=== PATIENT | female | born 1975 | race Caucasian/White ===

== ENCOUNTER 2017-07-29 17:51 | Emergency (ER) | payer OTHER ==
[2017-07-29 17:57] VITALS: BP 187/113; PULSE 99; TEMP 98.1; BMI 43.8
--- NOTE | 2017-07-29 19:44 | PDOC ---
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 States she was moving something and a shelf fell on her head. Denies any LOC, denies any blood thinners, vomiting, motor or sensory deficits, vomiting. Pt reports feeling much better with a slight headache. Past History - Past Medical History Allergies/Adverse Reactions: Allergies Allergy/AdvReac Type Severity Reaction Status Date / Time peanut Allergy Verified 07/29/17 17:54 COPD: No - Suicide/Smoking/Psychosocial Hx Smoking History: Never smoked Have you smoked in the past 12 months: No Information on smoking cessation initiated: No Hx Alcohol Use: No Drug/Substance Use Hx: No Substance Use Type: None Review of Systems - Review of Systems Constitutional: No: Chills, Fever, Night Sweats HEENTM: No: Blurred Vision, Nose Congestion, Throat Pain Respiratory: No: Cough, Shortness of Breath, Wheezing Cardiac (ROS): No: Chest Pain, Lightheadedness, Palpitations, Syncope, Chest Tightness ABD/GI: No: Constipated, Diarrhea, Nausea, Vomiting Musculoskeletal: No: Back Pain, Neck Pain Integumentary: No: Lesions, Lumps Neurological: No: Numbness, Paresthesia, Tingling, Weakness, Dizziness Hematologic/Lymphatic: No: Easy Bleeding, Easy Bruising *Physical Exam - Vital Signs Last Vital Signs Temp Pulse Resp BP Pulse Ox 98.1 F 99 H 20 187/113 99 07/29/17 17:54 07/29/17 17:54 07/29/17 17:54 07/29/17 17:54 07/29/17 17:54 - Physical Exam Comments: 07/29/17 19:59 GEN: NAD, awake, alert, oriented x3 HEENT: Slight R superior abrasion of scalp, no bleeding or hematoma, skull structurally stable, no racoon eyes or mello signs noted, moist mucosa LUNGS: CTA b/l CARDIAC: RRR no murmurs ABD: Soft, NT/ND, no guarding EXT: No edema, 2+ DP pulses Medical Decision Making - Medical Decision Making 07/29/17 19:49 Abrasion of head. Per [place] CT score does not need a CT scan. Motrin 400mg PO once. Can be discharged after with disposition to home. *DC/Admit/Observation/Transfer Diagnosis at time of Disposition: Head injury Qualifiers: Encounter type: initial encounter Qualified Code(s): S09.90XA - Unspecified injury of head, initial encounter - Discharge Dispostion Disposition: HOME Condition at time of disposition: Good Admit: No - Referrals Referrals: Marlene Marion [Primary Care Provider] - - Patient Instructions Additional Instructions: You were seen here for a head injury from your incident with a shelf. There is only a small scrape on your scalp A CT scan is not needed due to resolution of symptoms. IF you feel disoriented, increasing sleepiness, difficulties with moving or sensation changes please come back to the ER for further evaluation. Otherwise take either OTC motrin or tylenol for pain. Have a great day! - Post Discharge Activity
[2017-07-29] MEDS ORDERED: IBUPROFEN 400 MG TABLET (FP) PO ONE ×2 (19:47→19:51)
--- NOTE | 2017-07-29 19:49 | PDOC ---
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 No: Apparent Distress, Intoxicated HEENT: positive: EOMI, OSMEL, Normal ENT Inspection, Normal Voice, TMs Normal, Pharynx Normal. negative: Pale Conjunctivae, Photophobia, Scleral Icterus (R), Scleral Icterus (L) Neck: positive: Trachea midline, Normal Thyroid, Supple. negative: Tender, Rigid, Carotid bruit, Stridor, Lymphadenopathy (R), Lymphadenopathy (L), Thyromegaly Respiratory/Chest: positive: Lungs Clear, Normal Breath Sounds. negative: Chest Tender, Respiratory Distress, Accessory Muscle Use, Labored Respiration, RES, Crackles, Rales, Rhonchi, Stridor, Wheezing, Dullness Cardiovascular: positive: Regular Rhythm, Regular Rate, S1, S2. negative: Edema , JVD, Murmur, Bradycardia, Tachycardia Vascular Pulses: Dorsalis-Pedis (R): 2+, Doralis-Pedis (L): 2+ Gastrointestinal/Abdominal: positive: Normal Bowel Sounds, Flat, Soft. negative : Tender, Organomegaly, Pulsatile Mass, Increased Bowel Sounds, Decreased BS, Distended, Guarding, Rebound, Hernia, Hepatomegaly, Spleenomegaly Lymphatic: negative: Adenopathy, Tenderness Musculoskeletal: positive: Normal Inspection. negative: CVA Tenderness, Decreased Range of Motion Extremity: positive: Normal Capillary Refill, Normal Inspection, Normal Range of Motion, Pelvis Stable. negative: Tender, Pedal Edema, Swelling, Erythema Integumentary: positive: Normal Color, Dry, Warm. 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 negative: EOM Palsy, Facial Droop, Sensory Deficit - Medical Decision Making 07/29/17 19:49 Pt treated and released
== END 2017-07-29 20:31 | disposition home or self-care (01) ==
LOC: JER 17:51
DX: S09.8XXA Other specified injuries of head, initial encounter (principal); W22.8XXA Striking against or struck by other objects, initial encounter; Y93.89 Activity, other specified; Y92.238 Other place in hospital as the place of occurrence of the external cause; Y99.0 Civilian activity done for income or pay
CPT/HCPCS: 99282-25

== ENCOUNTER 2017-09-10 09:09 | Emergency (ER) | payer OTHER ==
[2017-09-10 09:13] VITALS: BP 124/93; PULSE 81; TEMP 98.3; BMI 42.5
--- NOTE | 2017-09-10 09:44 | PDOC ---
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 HAND INJURY Time Seen by Provider: 09/10/17 09:41 Past History - Past Medical History Allergies/Adverse Reactions: Allergies Allergy/AdvReac Type Severity Reaction Status Date / Time peanut Allergy Verified 09/10/17 09:10 STONE FRUITS Allergy Uncoded 09/10/17 09:10 Home Medications: Ambulatory Orders NK [No Known Home Medication] 09/10/17 COPD: No - Suicide/Smoking/Psychosocial Hx Smoking History: Never smoked Have you smoked in the past 12 months: No Information on smoking cessation initiated: No Hx Alcohol Use: No Drug/Substance Use Hx: No Substance Use Type: None *Physical Exam - Vital Signs Last Vital Signs Temp Pulse Resp BP Pulse Ox 98.3 F 81 18 124/93 100 09/10/17 09:11 09/10/17 09:11 09/10/17 09:11 09/10/17 09:11 09/10/17 09:11 ED Treatment Course - RADIOLOGY Radiology Studies Ordered: Category Date Time Status WRIST W/HAND-LEFT* [RAD] Stat Radiology 09/10/17 09:42 Ordered *DC/Admit/Observation/Transfer Diagnosis at time of Disposition: Left wrist pain - Discharge Dispostion Disposition: HOME Condition at time of disposition: Stable Decision to Admit order: No - Referrals Referrals: Marlene Marion [Primary Care Provider] - - Patient Instructions Printed Discharge Instructions: DI for Wrist Strain Additional Instructions: Your x-ray is negative for fracture Please wear the splint for comfort. You may take 600mg of ibuprofen every 8 hours as needed for pain Ice the hand and keep it elevated Follow up with your orthopedic doctor next week. Return if you have an new or worsening symptoms - Post Discharge Activity Forms/Work/School Notes: Back to Work
== END 2017-09-10 13:20 | disposition home or self-care (01) ==
LOC: JERFT 09:09 → JER 09:09 → JERFT 13:20
PROC: 2W3DX1Z Immobilization of Left Lower Arm using Splint (ICD-10-PCS; principal; 2017-09-10)
DX: S66.812A Strain of other specified muscles, fascia and tendons at wrist and hand level, left hand, initial encounter (principal); W19.XXXA Unspecified fall, initial encounter; Y93.89 Activity, other specified; Y92.89 Other specified places as the place of occurrence of the external cause; Y99.8 Other external cause status
CPT/HCPCS: 73110-TC-LR-FY; 73130-TC-LR-FY; 99281-25

== ENCOUNTER 2017-11-09 11:44 | Emergency (ER) | payer OTHER ==
[2017-11-09 11:51] VITALS: BP 134/89; PULSE 90; TEMP 98.7; BMI 41.5
--- NOTE | 2017-11-09 12:06 | PDOC ---
Attending Attestation - Resident Resident Name: Alana Bella - HPI HPI: 11/09/17 13:00 11/09/17 13:04 - Medical Decision Making 11/09/17 13:04 Pt presents to the ED complaining of atraumatic right sided back pain that has been persistent for two weeks but became acutely worse on thursday. No urinary complaints or fever, no point tenderness over spine. Pain is most likely musculoskeletal. Will treat with IM toradol and rx for NSAIDs. Patient instructed to return to the ED for worsening symptoms. <Claudine Canales - Last Filed: 11/09/17 13:00> - HPI HPI: 11/09/17 13:41 The patient is a 42 year old female, with no significant past medical history, who presents to the emergency department with, 2 weeks of worsening back pain. 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 She describes her pain as cartilage rubbing against each other, localized to her mid lower back, and ranking a 8/10. Her pain is worsened when on her sides and with deep inspiration. Her pain is alleviated when moving forward. She has used Naproxen, Tylenol, and Advil, without relief. She has used Bengay, with minimal relief. She denies recent fevers, chills, headache or dizziness. She denies recent nausea, vomit, diarrhea or constipation. She denies recent dysuria, frequency, urgency or hematuria. She denies recent chest pain or shortness of breath. Allergies: Peanuts. Stone fruits. Social history: Former smoker. Denies recreational drug use. - Physicial Exam PE: 11/09/17 14:08 GENERAL: Awake, alert, and fully oriented, in no acute distress HEAD: No signs of trauma EYES: PERRLA, EOMI, sclera anicteric, conjunctiva clear ENT: Auricles normal inspection, hearing grossly normal, nares patent, oropharynx clear without exudates. Moist mucosa NECK: Normal ROM, supple, no lymphadenopathy, JVD, or masses LUNGS: Breath sounds equal, clear to auscultation bilaterally. No wheezes, and no crackles HEART: Regular rate and rhythm, normal S1 and S2, no murmurs, rubs or gallops ABDOMEN: Soft, nontender, normoactive bowel sounds. No guarding, no rebound. No masses +BACK: Right sided paraspinal tenderness. EXTREMITIES: Normal range of motion, no edema. No clubbing or cyanosis. No cords, erythema, or tenderness NEUROLOGICAL: Cranial nerves II through XII grossly intact. Normal speech, normal gait SKIN: Warm, Dry, normal turgor, no rashes or lesions noted. <Chauncey Escobar - Last Filed: 11/09/17 14:08> Attestations - Attestations 11/09/17 13:42 Documentation prepared by Chauncey Escobar, acting as medical information officer for Claudine Canales MD. <Chauncey Escobar - Last Filed: 11/09/17 14:08>
[2017-11-09] MEDS ORDERED: KETOROLAC TROMETHAMINE 60 MG/2 ML VIAL IM ONE (12:22)
--- NOTE | 2017-11-09 12:30 | PDOC ---
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 Since then the back pain has not remitted despite the use of tylenol. She reports difficulty sleeping due to the pain but denies fever, nausea, urinary retention, blood in urine, saddle anesthesia, incontinence, difficulty walking. She has no other complaints at bedside. PMHX: none Meds: none Allergies: peanuts, stone fruits Tob: none Etoh: none Rec drugs: none Past History - Past Medical History Allergies/Adverse Reactions: Allergies Allergy/AdvReac Type Severity Reaction Status Date / Time peanut Allergy Verified 09/10/17 09:10 STONE FRUITS Allergy Uncoded 09/10/17 09:10 Home Medications: Ambulatory Orders Methocarbamol 500 mg PO BID PRN #20 tablet 11/09/17 Methocarbamol [Robaxin] 100 mg IJ TID #7 ml 11/09/17 Naproxen 500 mg PO BID PRN #30 tablet. 11/09/17 Naproxen [Naprosyn] 500 mg PO PRN #14 tablet 11/09/17 Methocarbamol [Robaxin -] 500 mg PO BID PRN #14 tablet 11/10/17 Methocarbamol [Robaxin -] 500 mg PO BID PRN #20 tablet MDD 2 tabs 11/10/17 Naproxen [Naprosyn] 500 mg PO BID PRN #14 tablet 11/10/17 Cancer: Yes Cardiac Disorders: Yes ([place]) COPD: No Diabetes: Yes - Suicide/Smoking/Psychosocial Hx Smoking History: Former smoker Have you smoked in the past 12 months: No Information on smoking cessation initiated: No Hx Alcohol Use: No Drug/Substance Use Hx: No Substance Use Type: None Review of Systems - Review of Systems Able to Perform ROS?: Yes Is the patient limited Irish proficient: No Constitutional: No: Chills, Fever HEENTM: No: Blurred Vision, Tinnitus Respiratory: No: Cough, Shortness of Breath Cardiac (ROS): No: Chest Pain ABD/GI: No: Constipated, Diarrhea, Nausea, Vomiting : No: Burning, Dysuria, Hematuria, Incontinence Musculoskeletal: Yes: Back Pain, Muscle Pain Neurological: No: Headache, Numbness, Paresthesia, Tingling *Physical Exam - Vital Signs Last Vital Signs Temp Pulse Resp BP Pulse Ox 98.7 F 90 18 134/89 99 11/09/17 11:45 11/09/17 11:45 11/09/17 11:45 11/09/17 11:45 11/09/17 11:45 - Physical Exam Comments: GENERAL: Awake, alert, and fully oriented, in no acute distress HEAD: No signs of trauma, normocephalic, atraumatic EYES: EOMI, sclera anicteric, conjunctiva clear ENT: oropharynx clear without exudates. Moist mucosa NECK: Normal ROM, supple, no lymphadenopathy masses, No C-spine tenderness LUNGS: No distress, speaks full sentences, clear to auscultation bilaterally HEART: Regular rate and rhythm, normal S1 and S2, no murmurs, rubs or gallops, peripheral pulses normal and equal bilaterally. ABDOMEN: Soft, nontender, normoactive bowel sounds. No guarding, no rebound. No masses BACK: No spinal tenderness, + R sided paraspinal tenderness to palpation, No CVA tenderness EXTREMITIES : Normal inspection, Normal range of motion, no edema. No clubbing or cyanosis. NEUROLOGICAL: Normal speech, normal gait, no focal sensorimotor deficits SKIN: Warm, Dry, normal turgor, no rashes or lesions noted Medical Decision Making - Medical Decision Making 42 year old who presents with 4 days of R sided mid back pain without history of trauma, neurological changes or fevers. Patient's symptoms and history are consistent with muscle strain. Less likely etiologies compression fracture vs rib fracture vs pyelonephritis. These possibilities are less likely as the patient did not have a history of trauma, did not have a history that would decrease bone density and did not have any urinaru changes that would be concerning for urinary infection. On reassessment patient is stable. Patient ready for discharge and given follow up instrcutions with strict return precautions. *DC/Admit/Observation/Transfer Diagnosis at time of Disposition: Muscle strain - Discharge Dispostion Disposition: HOME Condition at time of disposition: Stable Decision to Admit order: No - Prescriptions Prescriptions: Methocarbamol [Robaxin -] 500 mg PO BID PRN #14 tablet PRN Reason: Back Pain Methocarbamol [Robaxin -] 500 mg PO BID PRN #20 tablet MDD 2 tabs PRN Reason: Pain Methocarbamol 500 mg PO BID PRN #20 tablet PRN Reason: Pain Methocarbamol [Robaxin] 100 mg IJ TID #7 ml Naproxen [Naprosyn] 500 mg PO BID PRN #14 tablet PRN Reason: Back Pain Naproxen 500 mg PO BID PRN #30 tablet. PRN Reason: Pain Naproxen [Naprosyn] 500 mg PO PRN #14 tablet - Referrals Referrals: Marlene Marion [Primary Care Provider] - - Patient Instructions Printed Discharge Instructions: DI for Muscle Strain Additional Instructions: You were seen in the ED for complaint of back pain/muscle strain. In the ED you were treated symptomatically and given pain medications. You are advised to rest and alternate between heat and ice for the back. Return to the ED immediately if you feel significant weakness, worsening of back pain, difficulty urinating, blood in the urine or stool, fevers, nausea or vomiting. - Post Discharge Activity Forms/Work/School Notes: Back to Work
[2017-11-09] MEDS ORDERED: KETOROLAC TROMETHAMINE 60 MG/2 ML VIAL ONE (12:32)
== END 2017-11-09 13:05 | disposition home or self-care (01) ==
LOC: JER 11:44
DX: S39.012A Strain of muscle, fascia and tendon of lower back, initial encounter (principal); S29.012A Strain of muscle and tendon of back wall of thorax, initial encounter; Y93.F9 Activity, other caregiving; Y92.238 Other place in hospital as the place of occurrence of the external cause; Y99.0 Civilian activity done for income or pay; X50.9XXA Other and unspecified overexertion or strenuous movements or postures, initial encounter; I25.2 Old myocardial infarction; E11.9 Type 2 diabetes mellitus without complications
CPT/HCPCS: 99282-25

== ENCOUNTER 2018-01-26 08:16 | Emergency (ER) | payer OTHER ==
[2018-01-26 08:28] VITALS: BP 118/85; PULSE 92; TEMP 99.1; BMI 42.0
[2018-01-26] MEDS ORDERED: PENICILLIN G BENZATHINE 1,200,000 UNIT/2 ML PFS IM ONE (08:44)
[2018-01-26] MEDS ORDERED: IBUPROFEN 400 MG TABLET (FP) PO ONE ×2 (08:44→08:52)
[2018-01-26] MEDS ORDERED: PENICILLIN G BENZATHINE 2,400,000 UNIT/4 ML PFS ONE (08:52)
--- NOTE | 2018-01-26 08:53 | PDOC ---
History of Present Illness - General Chief Complaint: Sore Throat Stated Complaint: SORE THROAT Time Seen by Provider: 01/26/18 08:33 History Source: Patient Exam Limitations: No Limitations - History of Present Illness Initial Comments: 01/26/18 08:50 c/o sore throat for 3 days history of strep Past History - Past Medical History Allergies/Adverse Reactions: Allergies Allergy/AdvReac Type Severity Reaction Status Date / Time peanut Allergy Verified 01/26/18 08:24 STONE FRUITS Allergy Uncoded 01/26/18 08:24 Home Medications: Ambulatory Orders Methylprednisolone [Medrol Dose Mike] 4 mg PO ASDIR #21 tablet 01/27/18 Cancer: No Cardiac Disorders: No COPD: No Diabetes: No - Suicide/Smoking/Psychosocial Hx Smoking History: Never smoked Have you smoked in the past 12 months: No Hx Alcohol Use: No Drug/Substance Use Hx: No Substance Use Type: None Review of Systems - Review of Systems Able to Perform ROS?: Yes Is the patient limited Lebanese proficient: No Constitutional: No: Symptoms Reported HEENTM: Yes: Symptoms Reported Respiratory: No: Symptoms reported Cardiac (ROS): No: Symptoms Reported ABD/GI: No: Symptoms Reported *Physical Exam - Vital Signs Last Vital Signs Temp Pulse Resp BP Pulse Ox 99.1 F 92 H 20 118/85 100 01/26/18 08:25 01/26/18 08:25 01/26/18 08:25 01/26/18 08:25 01/26/18 08:25 - Physical Exam General Appearance: Yes: Nourished, Appropriately Dressed HEENT: positive: EOMI, OSMEL, TMs Normal, Tonsillar Exudate, Tonsillar Erythema Neck: positive: Supple, Lymphadenopathy (R), Lymphadenopathy (L). negative: Tender, Other Respiratory/Chest: positive: Lungs Clear, Normal Breath Sounds. negative: Chest Tender Cardiovascular: positive: Regular Rhythm, Regular Rate Gastrointestinal/Abdominal: positive: Normal Bowel Sounds, Soft. negative: Tender Musculoskeletal: positive: Normal Inspection Extremity: positive: Normal Capillary Refill, Normal Inspection, Normal Range of Motion Integumentary: positive: Normal Color, Dry, Warm Neurologic: positive: Fully Oriented, Alert, Normal Mood/Affect, Normal Response , Motor Strength 5/5 Medical Decision Making - Medical Decision Making 01/26/18 08:51 cc: sore throat , low grade fever pos lymphadenopathy exudate left tonsil uvula midline neg drooling will treat for strep, pt prefers bicillin injection will send culture to confirm *DC/Admit/Observation/Transfer Diagnosis at time of Disposition: Pharyngitis Qualifiers: Pharyngitis/tonsillitis etiology: unspecified etiology Qualified Code(s): J02.9 - Acute pharyngitis, unspecified - Discharge Dispostion Disposition: HOME Condition at time of disposition: Good - Referrals Referrals: Marlene Marion [Primary Care Provider] - - Patient Instructions Additional Instructions: take ibuprofen 600-800mg every 8hrs for pain gargle with warm salt water every 4hrs and after meals follow with your doctor or ENT if symptoms worsen or persist - Post Discharge Activity Forms/Work/School Notes: Back to Work
== END 2018-01-26 09:21 | disposition home or self-care (01) ==
LOC: JERFT 08:16
DX: J02.0 Streptococcal pharyngitis (principal); B95.5 Unspecified streptococcus as the cause of diseases classified elsewhere
CPT/HCPCS: 87070; 87430; 99281-25

== ENCOUNTER 2018-01-27 08:21 | Emergency (ER) | payer OTHER ==
--- NOTE | 2018-01-27 08:42 | PDOC ---
History of Present Illness - General Chief Complaint: Sore Throat Stated Complaint: SORE THROAT Time Seen by Provider: 01/27/18 08:37 History Source: Patient Exam Limitations: No Limitations - History of Present Illness Initial Comments: 01/27/18 08:45 Pt is a 42 y/o F who presents to the ED for sore throat. States she has 3 days of pain and usually gets strep throat. Pt evaluated in the ED yesterday and had a negative rapid strep. Still pending the culture. Was treated with bicillin yesterday. States she usually gets steroids for the pain. Admits to worsening pain and difficulty swallowing. Denies fevers, chills, n/v, difficulty breathing. Past History - Travel Traveled outside of the country in the last 30 days: No Close contact w/someone who was outside of country & ill: No - Past Medical History Allergies/Adverse Reactions: Allergies Allergy/AdvReac Type Severity Reaction Status Date / Time peanut Allergy Verified 01/26/18 08:24 STONE FRUITS Allergy Uncoded 01/26/18 08:24 Home Medications: Ambulatory Orders Methylprednisolone [Medrol Dose Mike] 4 mg PO ASDIR #21 tablet 01/27/18 Cancer: No Cardiac Disorders: No COPD: No Diabetes: No - Suicide/Smoking/Psychosocial Hx Smoking History: Never smoked Have you smoked in the past 12 months: No Hx Alcohol Use: No Drug/Substance Use Hx: No Substance Use Type: None Review of Systems - Review of Systems Able to Perform ROS?: Yes Comments:: 01/27/18 08:54 CONSTITUTIONAL: Absent: fever, chills, diaphoresis, generalized weakness, malaise, loss of appetite HEENT: Present: sore throat, difficulty swallowing Absent: rhinorrhea, nasal congestion , throat swelling, mouth swelling, ear pain, eye pain, visual Changes CARDIOVASCULAR: Absent: chest pain, loss of consciousness, palpitations, irregular heart rate, peripheral edema RESPIRATORY: Absent: cough, shortness of breath, dyspnea with exertion, orthopnea, wheezing, stridor, hemoptysis GASTROINTESTINAL: Absent: abdominal pain, abdominal distension, nausea, vomiting, diarrhea, constipation, melena, hematochezia GENITOURINARY: Absent: dysuria, frequency, urgency, hesitancy, hematuria, flank pain, genital pain MUSCULOSKELETAL: Absent: myalgia, arthralgia, joint swelling SKIN: Absent: rash, itching, pallor HEMATOLOGIC/IMMUNOLOGIC: Absent: easy bleeding, easy bruising, lymphadenopathy, frequent infections ENDOCRINE: Absent: unexplained weight gain, unexplained weight loss, heat intolerance, cold intolerance NEUROLOGIC: Absent: headache, focal weakness or paresthesias, dizziness, unsteady gait, seizure, mental status changes, bladder or bowel incontinence PSYCHIATRIC: Absent: anxiety, depression, suicidal or homicidal ideation, hallucinations. Is the patient limited [place] proficient: No *Physical Exam - Physical Exam Comments: 01/27/18 08:58 GENERAL: Well developed, well nourished. Awake and alert. No acute distress. HEENT: Normocephalic, atraumatic. PERRLA, EOMI. No conjunctival pallor. Sclera are non- icteric. Moist mucous membranes. Oropharynx with erythema, exudate to the tonsils. 2+ tonsils with no uvular deviation. NECK: Supple. Full ROM. No JVD. Carotid pulses 2+ and symmetric, without bruits. No thyromegaly. (+) cervical LAD. MUSCULOSKELETAL Normal range of motion at all joints. No bony deformities or tenderness. No CVA tenderness. EXTREMITIES: No cyanosis. No clubbing. No edema. No calf tenderness. SKIN: Warm and dry. Normal capillary refill. No rashes. No jaundice. NEUROLOGICAL: Alert, awake, appropriate. Cranial nerves 2-12 intact. No deficits to light touch and temperature in face, upper extremities and lower extremities. No motor deficits in the in face, upper extremities and lower extremities. Normoreflexic in the upper and lower extremities. Normal speech. Toes are down- going bilaterally. Gait is normal without ataxia. PSYCHIATRIC: Cooperative. Good eye contact. Appropriate mood and affect. Medical Decision Making - Medical Decision Making 01/27/18 09:05 Pt is a 42 y/o F who presents with 3 days of sore throat -Pt treated yesterday with bicillin -No uvular deviation, but tonsils erythematous with exudate and 2+ in size. -Will give pain control including steroids and toradol -Culture still pending -D/c home with medrol dose pack and ENT follow up -I discussed the physical exam findings, ancillary test results and final diagnoses with the patient. I answered all of the patient's questions. The patient was satisfied with the care received and felt comfortable with the discharge plan and treatment plan. The Patient agrees to follow up with the primary care physician/specialist within 24-72 hours. Return precautions were given. *DC/Admit/Observation/Transfer Diagnosis at time of Disposition: Pharyngitis Qualifiers: Pharyngitis/tonsillitis etiology: unspecified etiology Qualified Code(s): J02.9 - Acute pharyngitis, unspecified - Discharge Dispostion Disposition: HOME Condition at time of disposition: Stable Decision to Admit order: No - Referrals Referrals: Reagan Chacon MD [Staff Physician] - - Patient Instructions Printed Discharge Instructions: DI for Strep Throat Additional Instructions: You have strep throat. This is a bacterial infection. You were treated with bicillin yesterday You may take Motrin 800 mg every 8 hours as needed for pain or fever. Warm water gargles and cough drops and just may also help her symptoms. Please throw way your toothbrush 3 days into treatment to prevent reinfection. Please follow up with your primary care doctor next week. Return to emergency department if you have worsening pain, difficulty swallowing , changes in your voice, lightheadedness, dizziness, or any changes in your symptoms. - Post Discharge Activity Forms/Work/School Notes: Back to Work
[2018-01-27] MEDS ORDERED: DEXAMETHASONE LIQUID 0.5 MG/5 ML 240 ML BULK BOTTLE PO ONE (08:43)
[2018-01-27] MEDS ORDERED: KETOROLAC TROMETHAMINE 60 MG/2 ML VIAL IM ONE (08:45)
[2018-01-27] MEDS ORDERED: KETOROLAC TROMETHAMINE 30 MG/1 ML VIAL ONE (08:50)
[2018-01-27 08:51] VITALS: BP 117/81; PULSE 88; TEMP 99.4; BMI 42.0
[2018-01-27] MEDS ORDERED: DEXAMETHASONE SOD PHOSPHATE 10 MG/1 ML VIAL ONE (08:51)
== END 2018-01-27 09:22 | disposition home or self-care (01) ==
LOC: JERFT 08:21
PROC: 3E0233Z Introduction of Anti-inflammatory into Muscle, Percutaneous Approach (ICD-10-PCS; principal; 2018-01-27)
DX: J02.9 Acute pharyngitis, unspecified (principal)
CPT/HCPCS: 99281-25

== ENCOUNTER 2018-04-20 10:22 | Emergency (ER) | payer OTHER ==
[2018-04-20 10:32] VITALS: BP 111/75; PULSE 72; TEMP 98.6; BMI 42.0
[2018-04-20] MEDS ORDERED: DIPHTH,PERTUSS(ACELL),TET 0.5 ML DISP.SYRIN IM ONE ×2 (10:49→10:52)
--- NOTE | 2018-04-20 10:49 | PDOC ---
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: INJURY Time Seen by Provider: 04/20/18 10:42 History Source: Patient Exam Limitations: No Limitations - History of Present Illness Initial Comments: 04/20/18 10:45 Pt is a 43 y/o F with PMH of, who presents to the ED for scratches to ther L lower leg. Pt states she was sitting on the [employer] train when she felt a something scratch her leg. Pt states she then noticed a nail poking through the seat. Pt does not remember the date of her last tetanus shot. Denies fevers, chills, redness to the area, bleeding, or purulent discharge. Past History - Travel Traveled outside of the country in the last 30 days: No Close contact w/someone who was outside of country & ill: No - Past Medical History Allergies/Adverse Reactions: Allergies Allergy/AdvReac Type Severity Reaction Status Date / Time peanut Allergy Verified 01/26/18 08:24 STONE FRUITS Allergy Uncoded 01/26/18 08:24 Home Medications: Ambulatory Orders NK [No Known Home Medication] 04/20/18 Cancer: No Cardiac Disorders: No COPD: No Diabetes: No - Surgical History Cholecystectomy: No - Immunization History Immunization Up to Date: No - Suicide/Smoking/Psychosocial Hx Smoking History: Never smoked Have you smoked in the past 12 months: No Information on smoking cessation initiated: No Hx Alcohol Use: No Drug/Substance Use Hx: No Substance Use Type: None Review of Systems - Review of Systems Able to Perform ROS?: Yes Comments:: 04/20/18 10:46 CONSTITUTIONAL: Absent: fever, chills, diaphoresis, generalized weakness, malaise, loss of appetite HEENT: Absent: rhinorrhea, nasal congestion, throat pain, throat swelling, difficulty swallowing, mouth swelling, ear pain, eye pain, visual Changes MUSCULOSKELETAL: Absent: myalgia, arthralgia, joint swelling SKIN: Present: abrasions to the L outer leg Absent: rash, itching, pallor NEUROLOGIC: Absent: headache, focal weakness or paresthesias, dizziness, unsteady gait, seizure, mental status changes, bladder or bowel incontinence PSYCHIATRIC: Absent: anxiety, depression, suicidal or homicidal ideation, hallucinations. Is the patient limited Swedish proficient: No *Physical Exam - Vital Signs Last Vital Signs Temp Pulse Resp BP Pulse Ox 98.6 F 72 18 111/75 97 04/20/18 10:29 04/20/18 10:29 04/20/18 10:29 04/20/18 10:29 04/20/18 10:29 - Physical Exam Comments: 04/20/18 10:47 GENERAL: The patient is awake, alert, and fully oriented, in no acute distress. HEAD: Normal with no signs of trauma. EYES: Pupils equal, round and reactive to light, extraocular movements intact, sclera anicteric, conjunctiva clear. EXTREMITIES: Normal range of motion, no edema. NEUROLOGICAL: Normal speech, normal gait. PSYCH: Normal mood, normal affect. SKIN: Two 1cm abrasions to the L outer lower leg. No bleeding. Warm, Dry, normal turgor, no rashes or lesions noted. Moderate Sedation - Procedure Monitoring Vital Signs: Procedure Monitoring Vital Signs Temperature 98.6 F 04/20/18 10:29 Pulse Rate 72 04/20/18 10:29 Respiratory Rate 18 04/20/18 10:29 Blood Pressure 111/75 04/20/18 10:29 O2 Sat by Pulse Oximetry (%) 97 04/20/18 10:29 Medical Decision Making - Medical Decision Making 04/20/18 10:47 Pt is a 43 y/o F who presents to the ED for abrasions to her L lower leg. No bleeding noted. Superficial abrasions to the L outer leg Will update tetanus DC home I discussed the physical exam findings, ancillary test results and final diagnoses with the patient. I answered all of the patient's questions. The patient was satisfied with the care received and felt comfortable with the discharge plan and treatment plan. The Patient agrees to follow up with the primary care physician/specialist within 24-72 hours. Return precautions were given. *DC/Admit/Observation/Transfer Diagnosis at time of Disposition: Abrasion - Discharge Dispostion Condition at time of disposition: Stable - Referrals Referrals: Marlene Marion [Primary Care Provider] - - Patient Instructions Printed Discharge Instructions: DI for Abrasion Additional Instructions: Your evaluated for 2 small cuts to her left lower leg. There is no bleeding. Please keep the area clean and dry. He may use bacitracin over the area to prevent infection. Your tetanus shot was updated today. Please follow up with her primary care doctor Return to the emergency Department you have fevers, chills, redness to the site , numbness and tingling to site or if you have any changes in your symptoms. - Post Discharge Activity Forms/Work/School Notes: Back to Work
== END 2018-04-20 11:01 | disposition home or self-care (01) ==
LOC: JERFT 10:22
PROC: 3E0234Z Introduction of Serum, Toxoid and Vaccine into Muscle, Percutaneous Approach (ICD-10-PCS; principal; 2018-04-20)
DX: S80.812A Abrasion, left lower leg, initial encounter (principal); W45.0XXA Nail entering through skin, initial encounter; Y93.89 Activity, other specified; Y92.815 Train as the place of occurrence of the external cause; Y99.8 Other external cause status
CPT/HCPCS: 90715; 99281-25

== ENCOUNTER 2018-07-06 10:34 | Emergency (ER) | payer OTHER ==
[2018-07-06 10:43] VITALS: BP 126/75; PULSE 88; TEMP 98.5; BMI 42.3
[2018-07-06] MEDS ORDERED: FLUCONAZOLE 50 MG TABLET PO ONE (10:51)
--- NOTE | 2018-07-06 10:51 | PDOC ---
History of Present Illness - General Chief Complaint: Itching Stated Complaint: UTI Time Seen by Provider: 07/06/18 10:47 History Source: Patient Exam Limitations: Clinical Condition - History of Present Illness Initial Comments: 07/06/18 10:54 Patient with no significant past medical history present with complaint of vaginal yeast infection for 2 days. Patient reported white thick discharge. Denies pain. Dysuria, urinary frequency or urgency. Denies any other symptoms Timing/Duration: 24 hours Past History - Past Medical History Allergies/Adverse Reactions: Allergies Allergy/AdvReac Type Severity Reaction Status Date / Time peanut Allergy Verified 07/06/18 10:41 STONE FRUITS Allergy Uncoded 07/06/18 10:41 Home Medications: Ambulatory Orders NK [No Known Home Medication] 04/20/18 Cancer: No Cardiac Disorders: No COPD: No Diabetes: No - Surgical History Cholecystectomy: No - Immunization History Immunization Up to Date: No - Suicide/Smoking/Psychosocial Hx Smoking History: Never smoked Have you smoked in the past 12 months: No Hx Alcohol Use: No Drug/Substance Use Hx: No Substance Use Type: None Review of Systems - Review of Systems Able to Perform ROS?: Yes Is the patient limited Portuguese proficient: No Constitutional: No: Chills, Fever, Malaise HEENTM: No: Symptoms Reported Respiratory: No: Symptoms reported Cardiac (ROS): No: Symptoms Reported ABD/GI: No: Nausea, Vomiting : Yes: See HPI, Discharge (white vaginal discharge). No: Burning, Dysuria, Frequency, Flank Pain, Hematuria, Urgency All Other Systems: Reviewed and Negative *Physical Exam - Vital Signs Last Vital Signs Temp Pulse Resp BP Pulse Ox 98.5 F 88 20 126/75 99 07/06/18 10:37 07/06/18 10:37 07/06/18 10:37 07/06/18 10:37 07/06/18 10:37 - Physical Exam General Appearance: Yes: Nourished, Appropriately Dressed. No: Apparent Distress HEENT: positive: Normal ENT Inspection Neck: positive: Supple Respiratory/Chest: positive: Normal Breath Sounds. negative: Respiratory Distress, Accessory Muscle Use Cardiovascular: positive: Regular Rhythm, Regular Rate Female Pelvic Exam: positive: other (declined vaginal exam) Musculoskeletal: positive: Normal Inspection Extremity: positive: Normal Inspection Neurologic: positive: Fully Oriented, Alert Medical Decision Making - Medical Decision Making 07/06/18 10:58 Patient with no significant past medical history present with complaint of white vaginal discharge which she believes from vaginal yeast infection. Patient declined vaginal exam. Diflucan 150 mg by mouth given to patient. Patient is stable for discharge to follow-up with SENIOR MARKETING COORDINATOR. *DC/Admit/Observation/Transfer Diagnosis at time of Disposition: Vaginal candidiasis Vaginitis Qualifiers: Chronicity: acute Qualified Code(s): N76.0 - Acute vaginitis - Discharge Dispostion Disposition: HOME Condition at time of disposition: Stable Decision to Admit order: No - Referrals Referrals: Judy Gonzáles MD [Staff Physician] - - Patient Instructions Additional Instructions: Follow-up with SENIOR MARKETING COORDINATOR - Post Discharge Activity
[2018-07-06] MEDS ORDERED: FLUCONAZOLE 100 MG TABLET (UD) ONE (10:53)
== END 2018-07-06 11:23 | disposition home or self-care (01) ==
LOC: JERFT 10:34
DX: B37.3 Candidiasis of vulva and vagina (principal); N76.0 Acute vaginitis
CPT/HCPCS: 99281-25

== ENCOUNTER 2018-09-15 10:57 | Emergency (ER) | payer OTHER | END 2018-09-15 13:06 | disposition home or self-care (01) | LOC: JER 10:57 ==

== ENCOUNTER 2019-03-03 15:59 | Emergency (ER) | payer OTHER ==
[2019-03-03 16:35] VITALS: BP 140/96; PULSE 100; TEMP 98; BMI 36.9
--- NOTE | 2019-03-03 16:38 | PDOC ---
Rapid Medical Evaluation Chief Complaint: Pain Time Seen by Provider: 03/03/19 16:37 Medical Evaluation: Allergies Allergy/AdvReac Type Severity Reaction Status Date / Time peanut Allergy Verified 03/03/19 16:35 STONE FRUITS Allergy Uncoded 03/03/19 16:35 Vital Signs Temp Pulse Resp BP Pulse Ox 98 F 100 H 18 140/96 98 03/03/19 16:33 03/03/19 16:33 03/03/19 16:33 03/03/19 16:33 03/03/19 16:33 03/03/19 16:37 I have performed a brief in-person evaluation of this patient Chief complaint:denies pmhx c/o MURPHY, earache and mid upper back pain x 2 days. Pertinent PE findings: stable, NAD, non-focal I have ordered the following: none The patient will proceed to the ED for further evaluation. I have performed a brief in-person evaluation of this patient. Discharge Disposition - Diagnosis Earache symptoms in both ears - Referrals - Patient Instructions - Post Discharge Activity
[2019-03-03 17:58] LABS: BASO % 0.9 % (0-2.0); EOS % 2.9 % (0-4.5); HEMATOCRIT 41.3 % (32.4-45.2); HEMOGLOBIN 13.8 GM/dL (10.7-15.3); LYMPH % 27.5 % (8-40); MCH 29.5 pg (25.7-33.7); MCHC 33.4 g/dl (32.0-36.0); MEAN CELL VOLUME 88.6 fl (80-96); MEAN PLT VOLUME 10.7 fl (7.5-11.1); MONO % 5.7 % (3.8-10.2); PLATELET COUNT 214 K/MM3 (134-434); RBC 4.66 M/mm3 (3.60-5.2); RDW 13.6 % (11.6-15.6); WHITE BLOOD COUNT 9.2 K/mm3 (4.0-10.0)
[2019-03-03 18:33] LABS: ALBUMIN 3.4 g/dl (3.4-5.0); ALK PHOS 86 U/L (45-117); ANION GAP 5 MMOL/L (8-16); BILIRUBIN,TOTAL 0.3 mg/dL (0.2-1); BLOOD UREA NITROGEN 16.2 mg/dL (7-18); CALCIUM 9.2 mg/dL (8.5-10.1); CHLORIDE 105 mmol/L (98-107); CO2 28 mmol/L (21-32); CREATININE 1.1 mg/dL (0.55-1.3); GLUCOSE,RANDOM 91 mg/dL (74-106); POTASSIUM 4.1 mmol/L (3.5-5.1); SGOT/AST 15 U/L (15-37); SGPT/ALT 27 U/L (13-61); SODIUM 138 mmol/L (136-145); TOT PROT 6.8 g/dl (6.4-8.2)
[2019-03-03] MEDS ORDERED: IBUPROFEN 400 MG TABLET (FP) PO ONE ×2 (18:34)
--- NOTE | 2019-03-03 18:43 | PDOC ---
History of Present Illness - General Chief Complaint: Pain Stated Complaint: BACK/NECK/EAR/HEAD PAIN Time Seen by Provider: 03/03/19 16:37 History Source: Patient Exam Limitations: No Limitations Past History - Past Medical History Allergies/Adverse Reactions: Allergies Allergy/AdvReac Type Severity Reaction Status Date / Time peanut Allergy Verified 03/03/19 16:35 STONE FRUITS Allergy Uncoded 03/03/19 16:35 Home Medications: Ambulatory Orders Cyclobenzaprine HCl [Flexeril -] 10 mg PO HS #10 tablet 03/03/19 Cyclobenzaprine HCl [Flexeril -] 10 mg PO HS #10 tablet 03/03/19 Cancer: No Cardiac Disorders: No COPD: No Diabetes: No - Surgical History Cholecystectomy: No - Immunization History Immunization Up to Date: No - Psycho Social/Smoking Cessation Hx Smoking History: Never smoked Have you smoked in the past 12 months: No Hx Alcohol Use: No Drug/Substance Use Hx: No Substance Use Type: None *Physical Exam - Vital Signs Last Vital Signs Temp Pulse Resp BP Pulse Ox 98 F 100 H 18 140/96 98 03/03/19 16:33 03/03/19 16:33 03/03/19 16:33 03/03/19 16:33 03/03/19 16:33 ED Treatment Course - LABORATORY CBC & Chemistry Diagram: 03/03/19 17:41 03/03/19 17:41 - ADDITIONAL ORDERS Additional order review: Laboratory Results 03/03/19 17:41 Sodium 138 Potassium 4.1 Chloride 105 Carbon Dioxide 28 Anion Gap 5 L BUN 16.2 Creatinine 1.1 Est GFR (CKD-EPI)AfAm 71.21 Est GFR (CKD-EPI)NonAf 61.44 Random Glucose 91 Calcium 9.2 Total Bilirubin 0.3 AST 15 ALT 27 Alkaline Phosphatase 86 Creatine Kinase 98 Troponin I < 0.02 Total Protein 6.8 Albumin 3.4 03/03/19 17:41 RBC 4.66 MCV 88.6 MCHC 33.4 RDW 13.6 MPV 10.7 Neutrophils % 63.0 Lymphocytes % 27.5 Monocytes % 5.7 Eosinophils % 2.9 Basophils % 0.9 - RADIOLOGY Radiology Studies Ordered: Category Date Time Status CHEST PA & LAT [RAD] Stat Radiology 03/03/19 17:23 Taken - Medications Given in the ED: ED Medications Discontinued Medications Generic Name Dose Route Start Last Admin Trade Name Freq PRN Reason Stop Dose Admin Ibuprofen 800 mg 03/03/19 18:34 03/03/19 18:35 Motrin - PO 03/03/19 18:35 800 mg ONCE ONE Administration Discharge - Discharge Information Problems reviewed: Yes Clinical Impression/Diagnosis: Trapezius muscle strain Qualifiers: Encounter type: initial encounter Laterality: unspecified laterality Qualified Code(s): S46.819A - Strain of other muscles, fascia and tendons at shoulder and upper arm level, unspecified arm, initial encounter Condition: Stable Disposition: HOME - Admission No - Follow up/Referral - Patient Discharge Instructions Patient Printed Discharge Instructions: DI for Muscle Strain Additional Instructions: Your evaluated for your back pain, earache and neck pain today. It is most likely originating from your upper back or trapezius muscles. Please take Flexeril at night before bed this is a muscle relaxer. Do not drink or drive after taking this medication as it may make you drowsy. Please take Motrin 800 mg every 8 hours for 1 week. Take with food Follow-up with your primary care doctor this week. Return to the ER for any new or worsening symptoms. - Post Discharge Activity Work/Back to School Note: Back to Work
--- NOTE | 2019-03-04 13:08 | EKG ---
Test Reason : Blood Pressure : / mmHG Vent. Rate : 093 BPM Atrial Rate : 093 BPM P-R Int : 164 ms QRS Dur : 080 ms QT Int : 342 ms P-R-T Axes : 047 000 025 degrees QTc Int : 425 ms NORMAL SINUS RHYTHM POSSIBLE LEFT ATRIAL ENLARGEMENT LOW VOLTAGE QRS NO PREVIOUS ECGS AVAILABLE Confirmed by ANITA DE LA CRUZ MD ([id number]) on 03/04/2019 1:07:34 PM Referred By: Confirmed By:ANITA DE LA CRUZ MD
== END 2019-03-03 18:51 | disposition home or self-care (01) ==
LOC: JERFT 15:59
DX: S46.819A Strain of other muscles, fascia and tendons at shoulder and upper arm level, unspecified arm, initial encounter (principal); X58.XXXA Exposure to other specified factors, initial encounter; Y93.89 Activity, other specified; Y92.89 Other specified places as the place of occurrence of the external cause; Y99.8 Other external cause status; Z91.018 Allergy to other foods; Z91.010 Allergy to peanuts
CPT/HCPCS: 36415; 71046-TC-FY; 80053; 82550; 84484; 85025; 93005; 93010; 99281-25

== ENCOUNTER 2019-03-19 12:12 | Emergency (ER) | payer OTHER ==
[2019-03-19 12:28] VITALS: BP 119/71; PULSE 84; TEMP 98; BMI 42.5
--- NOTE | 2019-03-19 12:50 | PDOC ---
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: WORK RELATED ACCIDENT Time Seen by Provider: 03/19/19 12:33 History Source: Patient Exam Limitations: Clinical Condition - History of Present Illness Initial Comments: 03/19/19 12:52 Patient with no significant past medical history present with complaint of pain to dorsum of distal aspect of right foot status post oxygen tank falling on right foot at work 1 hour ago. Patient reported mild pain to top of right foot. Denies difficulty with ambulation, numbness or tingling sensation. Patient took Motrin 600mg for pain. Denies any other symptoms Occurred: reports: this afternoon Past History - Past Medical History Allergies/Adverse Reactions: Allergies Allergy/AdvReac Type Severity Reaction Status Date / Time peanut Allergy Verified 03/19/19 12:28 STONE FRUITS Allergy Uncoded 03/19/19 12:28 Home Medications: Ambulatory Orders Cyclobenzaprine HCl [Flexeril -] 10 mg PO HS #10 tablet 03/03/19 Cyclobenzaprine HCl [Flexeril -] 10 mg PO HS #10 tablet 03/03/19 Cancer: No Cardiac Disorders: No COPD: No Diabetes: No - Surgical History Cholecystectomy: No - Immunization History Immunization Up to Date: No - Psycho Social/Smoking Cessation Hx Smoking History: Never smoked Have you smoked in the past 12 months: No Information on smoking cessation initiated: No Hx Alcohol Use: No Drug/Substance Use Hx: No Substance Use Type: None Review of Systems - Review of Systems Able to Perform ROS?: Yes Is the patient limited Belgian proficient: No Constitutional: No: Malaise, Weakness HEENTM: No: Symptoms Reported Respiratory: No: Symptoms reported Cardiac (ROS): No: Symptoms Reported ABD/GI: No: Symptoms Reported Musculoskeletal: Yes: Symptoms Reported, See HPI, Muscle Pain (top of right foot pain). No: Joint Swelling Integumentary: No: Symptoms Reported, See HPI, Bruising, Change in Color Neurological: No: Symptoms reported All Other Systems: Reviewed and Negative *Physical Exam - Vital Signs Last Vital Signs Temp Pulse Resp BP Pulse Ox 98.0 F 84 16 119/71 100 03/19/19 12:23 03/19/19 12:23 03/19/19 12:23 03/19/19 12:23 03/19/19 12:23 - Physical Exam General Appearance: Yes: Nourished, Appropriately Dressed, Mild Distress HEENT: positive: Normal ENT Inspection Respiratory/Chest: negative: Respiratory Distress, Accessory Muscle Use Musculoskeletal: positive: Normal Inspection, Other (mild TTP over dorsum aspect of distal metatarsals of 2nd and 3rd of right foot. no swelling to right foot) Extremity: positive: Normal Inspection. negative: Swelling, Erythema Integumentary: positive: Normal Color Neurologic: positive: Fully Oriented, Alert, Normal Response, Motor Strength 5/5 ED Treatment Course - RADIOLOGY Radiology Studies Ordered: Category Date Time Status FOOT-RIGHT [RAD] Stat Radiology 03/19/19 12:38 Ordered Medical Decision Making - Medical Decision Making 03/19/19 12:53 Patient with no significant past medical history present with complaint of pain to dorsum of distal aspect of right foot status post oxygen tank falling on right foot at work 1 hour ago. Patient reported mild pain to top of right foot. Denies difficulty with ambulation, numbness or tingling sensation. Patient took Motrin 600mg for pain. Denies any other symptoms Exam significant for mild tenderness to dorsum aspect of right foot over distal second and fourth metatarsals with no swelling or skin ecchymosis. X-ray of right foot shows no acute fracture. Symptoms likely foot sprain and stable for discharge to take Motrin as needed for pain with advised to do hot compress and rest right foot with follow-up as needed Discharge - Discharge Information Problems reviewed: Yes Clinical Impression/Diagnosis: Contusion of foot, right Qualifiers: Encounter type: initial encounter Qualified Code(s): S90.31XA - Contusion of right foot, initial encounter Condition: Stable Disposition: HOME - Admission No - Follow up/Referral - Patient Discharge Instructions Patient Printed Discharge Instructions: DI for Contusion Additional Instructions: X-ray of your right foot shows no acute fracture. Your pain is likely from contusion. Take prescribed home Motrin as needed for pain. Apply cold compress today and switch to hot compress tomorrow as needed for swelling. Rest right foot and no strenuous activity for the next 2 days. - Post Discharge Activity Work/Back to School Note: Back to Work
== END 2019-03-19 12:52 | disposition home or self-care (01) ==
LOC: JERFT 12:12
DX: S90.31XA Contusion of right foot, initial encounter (principal); Z91.010 Allergy to peanuts; W20.8XXA Other cause of strike by thrown, projected or falling object, initial encounter; Y92.89 Other specified places as the place of occurrence of the external cause; Z91.018 Allergy to other foods; Y93.89 Activity, other specified
CPT/HCPCS: 73630-TC-RT-FY; 99281-25

== ENCOUNTER 2019-05-11 16:02 | Emergency (ER) | payer OTHER ==
[2019-05-11 16:22] VITALS: BP 109/85; PULSE 112; TEMP 99.5; BMI 41.5
[2019-05-11] MEDS ORDERED: IBUPROFEN 600 MG TABLET (FP) PO ONE ×2 (16:22→16:29)
--- NOTE | 2019-05-11 16:22 | PDOC ---
Rapid Medical Evaluation Time Seen by Provider: 05/11/19 16:13 Medical Evaluation: Allergies Allergy/AdvReac Type Severity Reaction Status Date / Time peanut Allergy Verified 05/11/19 16:19 STONE FRUITS Allergy Uncoded 05/11/19 16:19 05/11/19 16:19 CC: flu-like symptoms x6 days PE: No focal findings Orders: motrin, influenza Patient will proceed to the ED for further evaluation. Discharge Disposition - Diagnosis URI (upper respiratory infection) - Referrals - Patient Instructions - Post Discharge Activity
--- NOTE | 2019-05-11 16:50 | PDOC ---
History of Present Illness - General Chief Complaint: Cold Symptoms Stated Complaint: WEAKNESS/HEADACHE/APPETITE LOSS Time Seen by Provider: 05/11/19 16:13 Past History - Past Medical History Allergies/Adverse Reactions: Allergies Allergy/AdvReac Type Severity Reaction Status Date / Time peanut Allergy Verified 05/11/19 16:19 STONE FRUITS Allergy Uncoded 05/11/19 16:19 Home Medications: Ambulatory Orders Cyclobenzaprine HCl [Flexeril -] 10 mg PO HS #10 tablet 03/03/19 Cyclobenzaprine HCl [Flexeril -] 10 mg PO HS #10 tablet 03/03/19 Fluticasone Prop 0.05% Nasal [Flonase -] 1 - 2 spray NS DAILY #1 spray.pump 05/11/19 Oseltamivir Phosphate [Tamiflu] 75 mg PO BID #10 capsule 05/11/19 Oxymetazoline 0.05% Nasal Soln [Afrin -] 1 spray NS DAILY #1 spraybtl 05/11/19 Cancer: No Cardiac Disorders: No COPD: No Diabetes: No - Surgical History Cholecystectomy: No - Immunization History Immunization Up to Date: No - Psycho Social/Smoking Cessation Hx Smoking History: Never smoked Have you smoked in the past 12 months: No Hx Alcohol Use: No Drug/Substance Use Hx: No Substance Use Type: None *Physical Exam - Vital Signs Last Vital Signs Temp Pulse Resp BP Pulse Ox 99.5 F 112 H 18 109/85 98 05/11/19 16:19 05/11/19 16:19 05/11/19 16:19 05/11/19 16:19 05/11/19 16:19 ED Treatment Course - Medications Given in the ED: ED Medications Discontinued Medications Generic Name Dose Route Start Last Admin Trade Name Freq PRN Reason Stop Dose Admin Ibuprofen 600 mg 05/11/19 16:22 05/11/19 16:33 Motrin - PO 05/11/19 16:23 600 mg ONCE ONE Administration Medical Decision Making - Medical Decision Making 05/11/19 16:42 44-year-old female, no significant history, here with congestion, MURPYH, facial pain, body aches and subj fever x 2 days. No rhinorrhea or cough. 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 [employer] see exam Influenza -dc w/ tamiflu and supportive -contact precautions given Discharge - Discharge Information Problems reviewed: Yes Clinical Impression/Diagnosis: Influenza Condition: Good Disposition: HOME - Additional Discharge Information Prescriptions: Fluticasone Prop 0.05% Nasal [Flonase -] 1 - 2 spray NS DAILY #1 spray.pump Oseltamivir Phosphate [Tamiflu] 75 mg PO BID #10 capsule Oxymetazoline 0.05% Nasal Soln [Afrin -] 1 spray NS DAILY #1 spraybtl - Follow up/Referral - Patient Discharge Instructions Patient Printed Discharge Instructions: Influenza - Post Discharge Activity Work/Back to School Note: Back to Work
== END 2019-05-11 17:46 | disposition home or self-care (01) ==
LOC: JERFT 16:02 → JER 16:02 → JERFT 17:46
DX: J11.1 Influenza due to unidentified influenza virus with other respiratory manifestations (principal); Z91.010 Allergy to peanuts; Z91.018 Allergy to other foods
CPT/HCPCS: 87804; 99282-25

== ENCOUNTER 2019-11-09 09:16 | Emergency (ER) | payer OTHER ==
--- NOTE | 2019-11-09 09:22 | PDOC ---
Rapid Medical Evaluation Chief Complaint: Ear Problem Time Seen by Provider: 11/09/19 09:21 Medical Evaluation: Allergies Allergy/AdvReac Type Severity Reaction Status Date / Time peanut Allergy Verified 05/11/19 16:19 STONE FRUITS Allergy Uncoded 05/11/19 16:19 11/09/19 09:21 Pt presents for L ear pain starting last night. Denies fevers Exam: deferred to provider Orders: nothing Pt to proceed to the ER for further evaluation Discharge Disposition - Diagnosis Ear ache - Referrals - Patient Instructions - Post Discharge Activity
[2019-11-09 09:46] VITALS: BP 119/79; PULSE 92; TEMP 97; BMI 42.2
--- NOTE | 2019-11-09 09:47 | PDOC ---
History of Present Illness - General Chief Complaint: Ear Problem Stated Complaint: LT. EAR PAIN Time Seen by Provider: 11/09/19 09:21 History Source: Patient - History of Present Illness Timing/Duration: reports: yesterday Past History - Medical History Allergies/Adverse Reactions: Allergies Allergy/AdvReac Type Severity Reaction Status Date / Time peanut Allergy Verified 11/09/19 09:24 STONE FRUITS Allergy Uncoded 11/09/19 09:24 Home Medications: Ambulatory Orders Cyclobenzaprine HCl [Flexeril -] 10 mg PO HS #10 tablet 03/03/19 Cyclobenzaprine HCl [Flexeril -] 10 mg PO HS #10 tablet 03/03/19 Fluticasone Prop 0.05% Nasal [Flonase -] 1 - 2 spray NS DAILY #1 spray.pump 05/11/19 Oseltamivir Phosphate [Tamiflu] 75 mg PO BID #10 capsule 05/11/19 Oxymetazoline 0.05% Nasal Soln [Afrin -] 1 spray NS DAILY #1 spraybtl 05/11/19 Fluconazole 150 mg PO ONCE #1 tablet 06/29/19 Diclofenac Sodium [Voltaren] 100 gm TP BID #1 tube 08/07/19 Ofloxacin 5 ml OT DAILY #1 bottle 11/09/19 Cancer: No Cardiac Disorders: No COPD: No Diabetes: No - Surgical History Cholecystectomy: No - Immunization History Immunization Up to Date: No - Psycho-Social/Smoking History Smoking History: Never smoked Have you smoked in the past 12 months: No - Substance Abuse Hx (Audit-C & DAST Scrn) How often the patient has a drink containing alcohol: Never Score: In Men: 4 or > Positive; In Women: 3 or > Positive: 0 Screen Result (Pos requires Nsg. Audit-10AR): Negative Review of Systems - Review of Systems Constitutional: No: Chills, Fever HEENTM: Yes: Ear Pain. No: Throat Pain Respiratory: No: Cough *Physical Exam - Vital Signs Last Vital Signs Temp Pulse Resp BP Pulse Ox 97 F L 92 H 18 119/79 98 11/09/19 09:21 11/09/19 09:21 11/09/19 09:21 11/09/19 09:21 11/09/19 09:21 - Physical Exam General Appearance: Yes: Appropriately Dressed. No: Apparent Distress HEENT: positive: Normal Voice, Other (+ttp to L canal, no erythema or debris, TM intact, no ttp/swelling over mastoid or L TMJ) Neck: positive: Supple. negative: Lymphadenopathy (R), Lymphadenopathy (L) Respiratory/Chest: negative: Respiratory Distress Integumentary: positive: Dry, Warm Neurologic: positive: Fully Oriented, Alert, Normal Mood/Affect Medical Decision Making - Medical Decision Making 11/09/19 09:47 44 yo F, no sig hx, here w/ L ear pain since last night. No otorrhea, sore throat, f/c. No trauma see exam Possible early otitis externa Exam remarkable for sig ttp to L canal Dc w/ top abx, motrin prn pain To return as needed Discharge - Discharge Information Problems reviewed: Yes Clinical Impression/Diagnosis: Ear ache Condition: Good Disposition: HOME - Additional Discharge Information Prescriptions: Ofloxacin 5 ml OT DAILY #1 bottle - Follow up/Referral - Patient Discharge Instructions Patient Printed Discharge Instructions: Otitis Externa - Post Discharge Activity
== END 2019-11-09 09:24 | disposition home or self-care (01) ==
LOC: JER 09:16
DX: H92.02 Otalgia, left ear (principal)
CPT/HCPCS: 99282-25

== ENCOUNTER 2019-12-05 09:08 | Emergency (ER) | payer OTHER ==
[2019-12-05 09:15] VITALS: BP 123/90; PULSE 67; TEMP 97.5; BMI 42.5
[2019-12-05] MEDS ORDERED: METHOCARBAMOL 500 MG TABLET PO ONE (09:23)
[2019-12-05] MEDS ORDERED: LIDOCAINE 5% TOPICAL PATCH TP ONE (09:23)
--- NOTE | 2019-12-05 09:29 | PDOC ---
History of Present Illness - General Chief Complaint: Weakness Stated Complaint: LT LEG WEAKNESS Time Seen by Provider: 12/05/19 09:18 History Source: Patient Exam Limitations: Clinical Condition - History of Present Illness Initial Comments: 12/05/19 09:29 Patient with past medical history of sciatica presented with complaint of tingling sensation and cramping pain with weakness in left lower extremity. Patient reported has been doing a lot of workout lately. Denies calf muscle tenderness, leg swelling, shortness of breath, chest pain. Patient report taking Motrin this morning for pain with minimal improvement. Denies any other symptoms. Denies saddle paresthesia, urinary or fecal incontinence. 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 Is this a multiple visit Asthma Patient?: No Timing/Duration: 4-6 hours Associated Symptoms: reports: denies symptoms Past History - Medical History Allergies/Adverse Reactions: Allergies Allergy/AdvReac Type Severity Reaction Status Date / Time peanut Allergy Verified 12/05/19 09:10 STONE FRUITS Allergy Uncoded 12/05/19 09:10 Home Medications: Ambulatory Orders Cyclobenzaprine HCl [Flexeril -] 10 mg PO HS #10 tablet 03/03/19 Cyclobenzaprine HCl [Flexeril -] 10 mg PO HS #10 tablet 03/03/19 Fluticasone Prop 0.05% Nasal [Flonase -] 1 - 2 spray NS DAILY #1 spray.pump 05/11/19 Oseltamivir Phosphate [Tamiflu] 75 mg PO BID #10 capsule 05/11/19 Oxymetazoline 0.05% Nasal Soln [Afrin -] 1 spray NS DAILY #1 spraybtl 05/11/19 Fluconazole 150 mg PO ONCE #1 tablet 06/29/19 Diclofenac Sodium [Voltaren] 100 gm TP BID #1 tube 08/07/19 Ibuprofen [Motrin -] 800 mg PO Q6H #60 tablet 11/09/19 Ofloxacin 5 ml OT DAILY #1 bottle 11/09/19 Methocarbamol [Robaxin -] 500 mg PO BID PRN #14 tablet 12/05/19 Methylprednisolone [Medrol Dose Mike] 4 mg PO ASDIR #21 tablet 12/05/19 Cancer: No Cardiac Disorders: No COPD: No Diabetes: No - Surgical History Cholecystectomy: No - Reproductive History Is Patient Now?: No - Immunization History Immunization Up to Date: No - Psycho-Social/Smoking History Smoking History: Never smoked Have you smoked in the past 12 months: No - Substance Abuse Hx (Audit-C & DAST Scrn) How often the patient has a drink containing alcohol: Never Score: In Men: 4 or > Positive; In Women: 3 or > Positive: 0 Screen Result (Pos requires Nsg. Audit-10AR): Negative In the last yr the pt used illegal drug/Rx for NonMed reason: No Score: Yes response is considered Positive: 0 Screen Result (Positive result requires Nsg. DAST-10): Negative Review of Systems - Review of Systems Able to Perform ROS?: Yes Is the patient limited [place] proficient: No Constitutional: No: Chills, Fever, Malaise HEENTM: No: Symptoms Reported, See HPI, Eye Pain, Blurred Vision, Tearing, Recent change in vision, Double Vision, Cataracts, Ear Pain, Ocular Prothesis, Ear Discharge, Nose Pain, Nose Congestion, Tinnitus, Nose Bleeding, Hearing Loss, Throat Pain, Throat Swelling, Mouth Pain, Dental Problems, Difficulty Swallowing, Mouth Swelling, Other Respiratory: No: Symptoms reported, See HPI, Cough, Orthopnea, Shortness of Breath, SOB with Exertion, SOB at Rest, Stridor, Wheezing, Productive cough, He moptysis, Other Cardiac (ROS): No: Symptoms Reported Musculoskeletal: Yes: Symptoms Reported, See HPI, Back Pain (left lower back), Muscle Weakness (left leg) Integumentary: No: Symptoms Reported Neurological: Yes: Tingling (left leg), Weakness (left leg). No: Headache, Paresthesia All Other Systems: Reviewed and Negative *Physical Exam - Vital Signs Last Vital Signs Temp Pulse Resp BP Pulse Ox 97.5 F L 67 20 123/90 100 12/05/19 09:11 12/05/19 09:11 12/05/19 09:11 12/05/19 09:11 12/05/19 09:11 - Physical Exam 12/05/19 09:38 GENERAL: Well developed, well nourished. Awake and alert. No acute distress. PULMONARY: No evidence of respiratory distress. MUSCULOSKELETAL : Moderate point tenderness over posterior paravertebral muscle of lumbosacral of L5-S1 on left side. Negative straight leg raise test. No radiculopathy. No bony deformities EXTREMITIES: No cyanosis. No clubbing. No edema. No calf tenderness. SKIN: Warm and dry. Normal capillary refill. No rashes. No jaundice. NEUROLOGICAL: Alert, awake, appropriate. No motor deficits in the lower extremities. Ambulating with normal gait without support. Negative straight leg test PSYCHIATRIC: Cooperative. Good eye contact. Appropriate mood and affect. General Appearance: Yes: Nourished, Appropriately Dressed. No: Apparent Distress Medical Decision Making - Medical Decision Making 12/05/19 09:31 Patient with past medical history of sciatica presented with complaint of tingling sensation and cramping pain with weakness in left lower extremity. Patient reported has been doing a lot of workout lately. Denies calf muscle tenderness, leg swelling, shortness of breath, chest pain. Patient report taking Motrin this morning for pain with minimal improvement. Denies any other symptoms. 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 Negative straight leg test.No calf muscle tenderness or swelling. Negative Homans sign. Patient symptoms likely sciatica. Lidocaine patch given for back pain Robaxin 500 mg p.o. ordered for spasm. Patient stable for discharge on Medrol pack for inflammatory effect and Robaxin for spasm with neurosurgery follow-up Discharge - Discharge Information Problems reviewed: Yes Clinical Impression/Diagnosis: Sciatic leg pain Condition: Stable Disposition: HOME - Admission No - Additional Discharge Information Prescriptions: Methylprednisolone [Medrol Dose Mike] 4 mg PO ASDIR #21 tablet Methocarbamol [Robaxin -] 500 mg PO BID PRN #14 tablet PRN Reason: spasm - Follow up/Referral Referrals: Roni Gong MD, FA[facility] [Staff Physician] - - Patient Discharge Instructions Patient Printed Discharge Instructions: DI for Sciatica Additional Instructions: Your leg pain and tingling sensation is likely caused by sciatica. Take prescribed medication as prescribed for sciatica. Follow-up referred orthopedic wood flooring specialist if no improvement in 3 days - Post Discharge Activity
[2019-12-05] MEDS ORDERED: LIDOCAINE 5% TOPICAL PATCH ONE (09:32)
[2019-12-05] MEDS ORDERED: METHOCARBAMOL 500 MG TABLET ONE (09:32)
[2019-12-05] MEDS ORDERED: LIDOCAINE PATCH REMOVAL MC SCH (22:00)
== END 2019-12-05 10:00 | disposition home or self-care (01) ==
LOC: JERFT 09:08
DX: M54.32 Sciatica, left side (principal)
CPT/HCPCS: 99283-25

== ENCOUNTER 2020-03-13 13:41 | Emergency (ER) | payer OTHER ==
[2020-03-13 13:56] VITALS: BP 114/73; PULSE 76; TEMP 98.4; BMI 41.5
[2020-03-13] MEDS ORDERED: KETOROLAC TROMETHAMINE 30 MG/1 ML VIAL IM ONE (14:13)
[2020-03-13] MEDS ORDERED: KETOROLAC TROMETHAMINE 30 MG/1 ML VIAL ONE (14:14)
== END 2020-03-13 14:26 | disposition home or self-care (01) ==
LOC: JERFT 13:41
PROC: 3E0233Z Introduction of Anti-inflammatory into Muscle, Percutaneous Approach (ICD-10-PCS; principal; 2020-03-13)
DX: M54.6 Pain in thoracic spine (principal)
CPT/HCPCS: 99284-25

== ENCOUNTER 2020-04-05 10:29 | Emergency (ER) | payer OTHER ==
[2020-04-05] MEDS ORDERED: diazePAM 5 MG TABLET PO ONE (10:30)
[2020-04-05] MEDS ORDERED: LIDOCAINE 5% TOPICAL PATCH TP ONE (10:30)
[2020-04-05] MEDS ORDERED: KETOROLAC TROMETHAMINE 15 MG/ML VIAL IM ONE (10:30)
[2020-04-05] MEDS ORDERED: LIDOCAINE 5% TOPICAL PATCH ONE (10:34)
[2020-04-05] MEDS ORDERED: diazePAM 5 MG TABLET ONE (10:34)
[2020-04-05] MEDS ORDERED: KETOROLAC TROMETHAMINE 30 MG/1 ML VIAL ONE (10:34)
[2020-04-05 10:43] VITALS: BP 150/90; PULSE 80; TEMP 98; BMI 27.3
[2020-04-05] MEDS ORDERED: ACETAMINOPHEN 500 MG TABLET (FP) PO ONE (11:37)
[2020-04-05] MEDS ORDERED: ACETAMINOPHEN 325 MG TABLET (FP) ONE (12:43)
[2020-04-05] MEDS ORDERED: LIDOCAINE PATCH REMOVAL MC SCH (22:00)
== END 2020-04-05 12:42 | disposition home or self-care (01) ==
LOC: JER 10:29
PROC: 3E023GC Introduction of Other Therapeutic Substance into Muscle, Percutaneous Approach (ICD-10-PCS; principal; 2020-04-05)
DX: M54.41 Lumbago with sciatica, right side (principal); S39.012A Strain of muscle, fascia and tendon of lower back, initial encounter; X50.9XXA Other and unspecified overexertion or strenuous movements or postures, initial encounter
CPT/HCPCS: 99284-25

== ENCOUNTER 2020-07-26 09:37 | Emergency (ER) | payer OTHER ==
[2020-07-26] MEDS ORDERED: KETOROLAC TROMETHAMINE 60 MG/2 ML VIAL IM ONE (10:10)
[2020-07-26 10:11] VITALS: BP 135/88; PULSE 74; TEMP 97.8; BMI 43.2
[2020-07-26] MEDS ORDERED: FAMOTIDINE 10 MG TABLET PO ONE (10:11)
[2020-07-26] MEDS ORDERED: ACETAMINOPHEN 325 MG TABLET (FP) PO ONE (10:11)
[2020-07-26] MEDS ORDERED: KETOROLAC TROMETHAMINE 60 MG/2 ML VIAL ONE (10:16)
[2020-07-26] MEDS ORDERED: FAMOTIDINE 10 MG TABLET ONE (10:16)
[2020-07-26] MEDS ORDERED: ACETAMINOPHEN 325 MG TABLET (FP) ONE (10:16)
== END 2020-07-26 11:23 | disposition home or self-care (01) ==
LOC: JER 09:37
PROC: 3E0233Z Introduction of Anti-inflammatory into Muscle, Percutaneous Approach (ICD-10-PCS; principal; 2020-07-26)
DX: M25.562 Pain in left knee (principal)
CPT/HCPCS: 73562-TC-LT-FY; 99284-25

== ENCOUNTER 2020-08-24 05:55 | Day surgery (SDC) | payer OTHER ==
[2020-08-21 10:22] VITALS: BMI 43.7
[2020-08-24] MEDS ORDERED: BUPIVACAINE HCL/PF 0.25% (2.5MG/ML) 10 ML VIAL ONE (07:10)
[2020-08-24] MEDS ORDERED: PROPOFOL 20 ML ONE ×2 (07:37)
[2020-08-24] MEDS ORDERED: LIDOCAINE HCL/PF 2% SDV 5ML VIAL ONE (07:37)
[2020-08-24] MEDS ORDERED: SUCCINYLCHOLINE CHLORIDE 200 MG/10 ML SYRINGE ONE (07:37)
[2020-08-24] MEDS ORDERED: BUPIVACAINE HCL/PF 0.25% (2.5MG/ML) 10 ML VIAL IJ ONE ×2 (08:09→08:24)
[2020-08-24] MEDS ORDERED: ONDANSETRON 4 MG/2 ML VIAL IVPUSH PRN (08:44)
[2020-08-24] MEDS ORDERED: PROMETHAZINE HCL 25 MG/1 ML VIAL IVPUSH PRN (08:44)
[2020-08-24] MEDS ORDERED: oxyCODONE HCL 5 MG TABLET PO PRN (08:44)
[2020-08-24] MEDS ORDERED: ONDANSETRON 4 MG/2 ML VIAL ONE (09:09)
[2020-08-24 09:52] VITALS: TEMP 97.1
[2020-08-24 11:14] VITALS: BP 124/84; PULSE 86
== END 2020-08-24 11:18 | disposition home or self-care (01) ==
LOC: FASU 05:55
PROVIDERS: ATTEND Orthopaedic Surgery Sports Medicine
PROC: 0SBD4ZZ Excision of Left Knee Joint, Percutaneous Endoscopic Approach (ICD-10-PCS; 2020-08-24)
PROC: 0SBD4ZZ Excision of Left Knee Joint, Percutaneous Endoscopic Approach (ICD-10-PCS; principal; 2020-08-24 08:07)
DX: S83.242A Other tear of medial meniscus, current injury, left knee, initial encounter (principal); X58.XXXA Exposure to other specified factors, initial encounter; Y93.9 Activity, unspecified; Y92.9 Unspecified place or not applicable; Y99.9 Unspecified external cause status; M94.262 Chondromalacia, left knee; M65.9 Synovitis and tenosynovitis, unspecified
CPT/HCPCS: 81025; 88304-TC; 88311-TC; 94760

== ENCOUNTER 2020-09-13 04:55 | Day surgery (SDC) | payer OTHER ==
[2020-09-12 15:32] VITALS: BMI 44.3
[2020-09-13] MEDS ORDERED: DEXAMETHASONE SOD PHOSPHATE 10 MG/1 ML VIAL ONE (07:07)
[2020-09-13] MEDS ORDERED: LIDOCAINE HCL/PF 1% SDV 5ML VIAL ONE (07:08)
[2020-09-13] MEDS ORDERED: SODIUM CHLORIDE 0.9% P/F 10 ML VIAL IJ ONE (07:13)
[2020-09-13] MEDS ORDERED: DEXAMETHASONE SOD PHOSPHATE 10 MG/1 ML VIAL IVPUSH ONE (08:02)
[2020-09-13] MEDS ORDERED: IOHEXOL 180 MG/1 ML ML IJ ONE (08:03)
[2020-09-13] MEDS ORDERED: LIDOCAINE HCL 1% PRESERVATIVE FREE - 30ML VIAL IJ ONE (08:03)
[2020-09-13 09:32] VITALS: BP 124/80; PULSE 78; TEMP 98.2
== END 2020-09-13 09:00 | disposition home or self-care (01) ==
LOC: JASU-SURG 04:55
PROVIDERS: ATTEND Pain Medicine Pain Medicine
PROC: 3E0R33Z Introduction of Anti-inflammatory into Spinal Canal, Percutaneous Approach (ICD-10-PCS; 2020-09-13)
PROC: 3E0R3BZ Introduction of Anesthetic Agent into Spinal Canal, Percutaneous Approach (ICD-10-PCS; principal; 2020-09-13 07:30)
DX: M54.16 Radiculopathy, lumbar region (principal)
CPT/HCPCS: 76000-TC-FY; 81025; J1100

== ENCOUNTER 2021-01-18 07:29 | Emergency (ER) | payer OTHER ==
[2021-01-18 07:39] VITALS: BP 153/95; PULSE 75; TEMP 98; BMI 44.3
[2021-01-18] MEDS ORDERED: KETOROLAC TROMETHAMINE 30 MG/1 ML VIAL IM ONE (08:05)
[2021-01-18] MEDS ORDERED: METHOCARBAMOL 500 MG TABLET PO ONE (08:05)
[2021-01-18] MEDS ORDERED: KETOROLAC TROMETHAMINE 30 MG/1 ML VIAL ONE (08:11)
[2021-01-18] MEDS ORDERED: METHOCARBAMOL 500 MG TABLET ONE (08:11)
== END 2021-01-18 09:57 | disposition home or self-care (01) ==
LOC: JER 07:29 → JERFT 07:29
PROC: 3E0233Z Introduction of Anti-inflammatory into Muscle, Percutaneous Approach (ICD-10-PCS; principal; 2021-01-18)
DX: M62.838 Other muscle spasm (principal); M54.6 Pain in thoracic spine
CPT/HCPCS: 99283-25

== ENCOUNTER 2021-05-01 06:29 | Observation (INO) | payer OTHER ==
[2021-05-01 07:02] VITALS: BMI 45.0
[2021-05-01 07:30] LABS: HEMATOCRIT 41.7 % (32.4-45.2); HEMOGLOBIN 13.7 GM/dL (10.7-15.3); MCHC 32.9 g/dl (32.0-36.0); MEAN CELL VOLUME 88.2 fl (80-96); MEAN PLT VOLUME 10.4 fl (7.5-11.1); PLATELET COUNT 174 10^3/uL (134-434); RBC 4.72 M/mm3 (3.60-5.2); RDW 13.9 % (11.6-15.6); WHITE BLOOD COUNT 7.6 K/mm3 (4.0-10.0)
[2021-05-01 07:48] LABS: CHLORIDE 106 mmol/L (98-107); SODIUM 140 mmol/L (136-145)
[2021-05-01 07:50] LABS: ALBUMIN 3.5 g/dl (3.4-5.0); ANION GAP 6 MMOL/L (8-16); BLOOD UREA NITROGEN 11.4 mg/dL (7-18); CALCIUM 8.6 mg/dL (8.5-10.1); CO2 28 mmol/L (21-32); GLUCOSE,RANDOM 94 mg/dL (74-106)
[2021-05-01 07:54] LABS: BILIRUBIN,TOTAL 0.4 mg/dL (0.2-1); CREATININE 1.1 mg/dL (0.55-1.3); SGOT/AST 14 U/L (15-37); SGPT/ALT 25 U/L (13-61); TOT PROT 6.8 g/dl (6.4-8.2)
[2021-05-01 07:57] LABS: ALK PHOS 75 U/L (45-117)
[2021-05-01] MEDS ORDERED: CYCLOBENZAPRINE HCL 10 MG TABLET (FP) PO ONE (09:51)
[2021-05-01] MEDS ORDERED: CYCLOBENZAPRINE HCL 10 MG TABLET (FP) ONE (09:53)
[2021-05-01] MEDS ORDERED: IBUPROFEN 400 MG TABLET (FP) PO ONE ×2 (17:19→17:27)
[2021-05-02] MEDS ORDERED: ACETAMINOPHEN 325 MG TABLET (FP) PO PRN (00:10)
[2021-05-02] MEDS: CYCLOBENZAPRINE HCL 5 MG TABLET PO PRN ×2 (00:28→20:57)
[2021-05-02 07:33] LABS: HEMATOCRIT 40.6 % (32.4-45.2); HEMOGLOBIN 13.5 GM/dL (10.7-15.3); MCH 29.4 pg (25.7-33.7); MCHC 33.2 g/dl (32.0-36.0); MEAN CELL VOLUME 88.6 fl (80-96); MEAN PLT VOLUME 10.5 fl (7.5-11.1); PLATELET COUNT 167 10^3/uL (134-434); RBC 4.58 M/mm3 (3.60-5.2); RDW 14.8 % (11.6-15.6); WHITE BLOOD COUNT 6.4 K/mm3 (4.0-10.0)
[2021-05-02 08:10] LABS: ALBUMIN 3.2 g/dl (3.4-5.0)
[2021-05-02 08:11] LABS: BILIRUBIN,TOTAL 0.4 mg/dL (0.2-1); BLOOD UREA NITROGEN 12.8 mg/dL (7-18); CALCIUM 8.6 mg/dL (8.5-10.1); TOT PROT 6.3 g/dl (6.4-8.2)
[2021-05-03 08:47] VITALS: BP 143/98; PULSE 85; TEMP 98.8
== END 2021-05-03 09:59 | disposition short-term general hospital (02) ==
LOC: JER 06:29 → JERBED 11:59 → J4W 23:37
PROVIDERS: ADMIT Family Medicine; ATTEND Family Medicine
DX: R07.9 Chest pain, unspecified (principal); R94.39 Abnormal result of other cardiovascular function study; M54.9 Dorsalgia, unspecified; E66.01 Morbid (severe) obesity due to excess calories; Z68.42 Body mass index [BMI] 45.0-49.9, adult; G89.29 Other chronic pain; Z82.49 Family history of ischemic heart disease and other diseases of the circulatory system; E78.5 Hyperlipidemia, unspecified; F41.9 Anxiety disorder, unspecified; M51.9 Unspecified thoracic, thoracolumbar and lumbosacral intervertebral disc disorder; Z72.0 Tobacco use; Z91.010 Allergy to peanuts; Z91.018 Allergy to other foods
CPT/HCPCS: 36415; 71046-TC-FY; 78452-TC; 80053; 80061; 82550; 84443; 84484; 84703; 85027; 85730; 93005; 93010; 93017; 99285-25; A9502; C9803; G0378; U0003; U0005

== ENCOUNTER 2021-09-09 08:49 | Emergency (ER) | payer OTHER ==
[2021-09-09 09:01] VITALS: BP 122/85; PULSE 72; TEMP 97.9; BMI 43.9
[2021-09-09] MEDS ORDERED: KETOROLAC TROMETHAMINE 30 MG/1 ML VIAL ONE (09:21)
== END 2021-09-09 09:42 | disposition home or self-care (01) ==
LOC: JER 08:49 → JERFT 08:49
DX: J02.9 Acute pharyngitis, unspecified (principal); R59.0 Localized enlarged lymph nodes
CPT/HCPCS: 87070; 87077; 99283-25

== ENCOUNTER 2021-11-07 09:20 | Emergency (ER) | payer OTHER ==
[2021-11-07 09:30] VITALS: BP 126/86; PULSE 79; RESP 18; TEMP 98.4; BMI 44.3
[2021-11-07] MEDS ORDERED: KETOROLAC TROMETHAMINE 30 MG/1 ML VIAL IM ONE (09:36)
[2021-11-07] MEDS ORDERED: KETOROLAC TROMETHAMINE 30 MG/1 ML VIAL ONE (09:41)
== END 2021-11-07 10:33 | disposition home or self-care (01) ==
LOC: JERFT 09:20
PROC: 3E023GC Introduction of Other Therapeutic Substance into Muscle, Percutaneous Approach (ICD-10-PCS; principal; 2021-11-07)
DX: M54.42 Lumbago with sciatica, left side (principal)
CPT/HCPCS: 99284-25

== ENCOUNTER 2022-02-17 10:04 | Emergency (ER) | payer OTHER ==
[2022-02-17 10:10] VITALS: BP 123/88; PULSE 75; RESP 18; TEMP 98.2; BMI 45.1
[2022-02-17 12:56] LABS: BASO % 0.5 % (0-2.0); EOS % 2.1 % (0-4.5); HEMATOCRIT 43.5 % (32.4-45.2); HEMOGLOBIN 14.4 GM/dL (10.7-15.3); LYMPH % 27.7 % (8-40); MCH 29.4 pg (25.7-33.7); MCHC 33.2 g/dl (32.0-36.0); MEAN CELL VOLUME 88.8 fl (80-96); MEAN PLT VOLUME 10.1 fl (7.5-11.1); MONO % 5.1 % (3.8-10.2); NEUT % 64.6 % (42.8-82.8); PLATELET COUNT 226 10^3/uL (134-434); RDW 14.5 % (11.6-15.6); WHITE BLOOD COUNT 8.4 K/mm3 (4.0-10.0)
[2022-02-17 13:01] LABS: INR 0.93 (0.83-1.09); PROTHROMBIN TIME (PATIENT) 10.7 SEC (9.7-13.0)
[2022-02-17 13:17] LABS: CALCIUM 9.5 mg/dL (8.5-10.1)
[2022-02-17 13:18] LABS: ALBUMIN 3.4 g/dl (3.4-5.0); MAGNESIUM 1.8 mg/dL (1.8-2.4)
[2022-02-17 13:21] LABS: CREATININE 0.9 mg/dL (0.55-1.3)
[2022-02-17 13:23] LABS: BILIRUBIN,TOTAL 0.3 mg/dL (0.2-1); TOT PROT 6.9 g/dl (6.4-8.2)
== END 2022-02-17 16:19 | disposition home or self-care (01) ==
LOC: JER 10:04
DX: R07.9 Chest pain, unspecified (principal)
CPT/HCPCS: 36415; 80053; 83735; 84484; 85025; 85610; 93005; 93010; 99284-25

== ENCOUNTER 2022-06-18 07:07 | Emergency (ER) | payer OTHER ==
[2022-06-18] MEDS ORDERED: METHOCARBAMOL 500 MG TABLET PO ONE (07:35)
[2022-06-18 07:40] VITALS: BP 131/95; PULSE 84; RESP 18; TEMP 98.5; BMI 46.2
[2022-06-18] MEDS ORDERED: METHOCARBAMOL 500 MG TABLET ONE (07:51)
[2022-06-18 08:44] LABS: BASO % 0.5 % (0-2.0); HEMATOCRIT 43.8 % (32.4-45.2); HEMOGLOBIN 14.4 GM/dL (10.7-15.3); LYMPH % 24.4 % (8-40); MCH 28.7 pg (25.7-33.7); MCHC 32.9 g/dl (32.0-36.0); MEAN CELL VOLUME 87.3 fl (80-96); MEAN PLT VOLUME 10.2 fl (7.5-11.1); MONO % 5.1 % (3.8-10.2); PLATELET COUNT 200 10^3/uL (134-434); RBC 5.01 M/mm3 (3.60-5.2); RDW 15.1 % (11.6-15.6); WHITE BLOOD COUNT 8.2 K/mm3 (4.0-10.0)
[2022-06-18 09:11] LABS: ALBUMIN 3.5 g/dl (3.4-5.0); BLOOD UREA NITROGEN 13.1 mg/dL (7-18)
[2022-06-18 09:14] LABS: CREATININE 1.1 mg/dL (0.55-1.3)
[2022-06-18 09:15] LABS: BILIRUBIN,TOTAL 0.9 mg/dL (0.2-1); TOT PROT 7.1 g/dl (6.4-8.2)
[2022-06-18] MEDS ORDERED: ACETAMINOPHEN 325 MG TABLET (FP) PO ONE (10:31)
[2022-06-18] MEDS ORDERED: ACETAMINOPHEN 325 MG TABLET (FP) ONE (11:02)
== END 2022-06-18 13:15 | disposition home or self-care (01) ==
LOC: JER 07:07
DX: R07.9 Chest pain, unspecified (principal); S29.012A Strain of muscle and tendon of back wall of thorax, initial encounter; M54.6 Pain in thoracic spine; X50.0XXA Overexertion from strenuous movement or load, initial encounter
CPT/HCPCS: 36415; 71045-TC-FY; 72070-TC-FY; 80053; 84484; 84703; 85025; 93005; 93010; 99285-25

== ENCOUNTER 2022-06-19 14:25 | Emergency (ER) | payer OTHER ==
[2022-06-19 15:10] VITALS: BP 127/100; PULSE 98; RESP 18; TEMP 98; BMI 44.3
[2022-06-19] MEDS ORDERED: MAGNESIUM SULF 50% (8.12 MEQ/2 ML-1 GM VIAL) IVPB ONE (15:34)
[2022-06-19] MEDS ORDERED: ACETAMINOPHEN 1000 MG/100 ML BAG IVPB ONE (15:34)
[2022-06-19] MEDS ORDERED: METOCLOPRAMIDE HCL INJECTION 10 MG/2 ML VIAL IVPB ONE (15:34)
[2022-06-19] MEDS ORDERED: LACTATED RINGERS SOLUTION 1000 ML INFUS.BAG IV ONE (15:34)
[2022-06-19] MEDS ORDERED: diazePAM 5 MG TABLET PO ONE (15:50)
[2022-06-19] MEDS ORDERED: ACETAMINOPHEN INJECTION 100 ML IVPB ONE (16:02)
[2022-06-19] MEDS ORDERED: METOCLOPRAMIDE HCL INJECTION 10 MG/2 ML VIAL ONE (16:02)
[2022-06-19] MEDS ORDERED: diazePAM 5 MG TABLET ONE (16:02)
[2022-06-19] MEDS ORDERED: MAGNESIUM 1GM/D5W - 1 GM/100 ML IVPB IVPB ONE (16:03)
[2022-06-19] MEDS ORDERED: KETOROLAC TROMETHAMINE 15 MG/ML VIAL IVPUSH ONE (21:49)
[2022-06-19] MEDS ORDERED: KETOROLAC TROMETHAMINE 15 MG/ML VIAL ONE (21:51)
== END 2022-06-19 23:08 | disposition home or self-care (01) ==
LOC: JER 14:25
PROC: 3E033NZ Introduction of Analgesics, Hypnotics, Sedatives into Peripheral Vein, Percutaneous Approach (ICD-10-PCS; principal; 2022-06-19)
PROC: 3E033GC Introduction of Other Therapeutic Substance into Peripheral Vein, Percutaneous Approach (ICD-10-PCS; 2022-06-19)
PROC: 3E033GC Introduction of Other Therapeutic Substance into Peripheral Vein, Percutaneous Approach (ICD-10-PCS; 2022-06-19)
PROC: 3E033GC Introduction of Other Therapeutic Substance into Peripheral Vein, Percutaneous Approach (ICD-10-PCS; 2022-06-19)
DX: R42 Dizziness and giddiness (principal); R51.9 Headache, unspecified
CPT/HCPCS: 70450-TC; 70496-TC; 70498-TC; 93005; 93010; 99284-25

== ENCOUNTER 2022-12-16 13:28 | Emergency (ER) | payer OTHER ==
[2022-12-16 13:43] VITALS: BP 132/87; PULSE 71; RESP 16; TEMP 98.8; BMI 43.2
== END 2022-12-16 14:16 | disposition home or self-care (01) ==
LOC: JER 13:28
DX: L29.2 Pruritus vulvae (principal); N89.8 Other specified noninflammatory disorders of vagina; N76.0 Acute vaginitis
CPT/HCPCS: 99283-25

== ENCOUNTER 2023-03-15 09:03 | Emergency (ER) | payer OTHER ==
[2023-03-15 09:16] VITALS: BP 127/78; PULSE 70; RESP 18; TEMP 98.4; BMI 42.0
[2023-03-15] MEDS ORDERED: ACETAMINOPHEN 500 MG TABLET (FP) PO ONE (09:20)
[2023-03-15] MEDS ORDERED: propRANOLol HCL 10 MG TABLET ONE (09:25)
[2023-03-15] MEDS ORDERED: ACETAMINOPHEN 500 MG TABLET (FP) ONE (09:26)
== END 2023-03-15 12:14 | disposition home or self-care (01) ==
LOC: JER 09:03 → JERFT 09:03
DX: M54.9 Dorsalgia, unspecified (principal)
CPT/HCPCS: 99281-25

== ENCOUNTER 2023-06-13 10:29 | Emergency (ER) | payer OTHER ==
[2023-06-13 10:57] VITALS: BP 134/88; PULSE 81; RESP 18; TEMP 98.3; BMI 35.6
[2023-06-13] MEDS ORDERED: DEXAMETHASONE SOD PHOSPHATE 10 MG/1 ML VIAL ONE (11:12)
[2023-06-13] MEDS: DEXAMETHASONE SOD PHOSPHATE 10 MG/1 ML VIAL IM ONE (11:18)
[2023-06-13 11:29] LABS: THROAT:GRP A STREP DETECTED (NOTDETECTED)
[2023-06-13] MEDS ORDERED: KETOROLAC TROMETHAMINE 30 MG/1 ML VIAL ONE (11:49)
[2023-06-13] MEDS: KETOROLAC TROMETHAMINE 30 MG/1 ML VIAL IM ONE (11:58)
[2023-06-13] MEDS: PENICILLIN G BENZATHINE 1,200,000 UNIT/2 ML PFS IM ONE (12:20)
== END 2023-06-13 12:34 | disposition home or self-care (01) ==
LOC: JERFT 10:29 → JER 10:29 → JERFT 12:34
PROC: 3E02329 Introduction of Other Anti-infective into Muscle, Percutaneous Approach (ICD-10-PCS; principal; 2023-06-13)
PROC: 3E0233Z Introduction of Anti-inflammatory into Muscle, Percutaneous Approach (ICD-10-PCS; 2023-06-13)
PROC: 3E023GC Introduction of Other Therapeutic Substance into Muscle, Percutaneous Approach (ICD-10-PCS; 2023-06-13)
DX: J02.0 Streptococcal pharyngitis (principal); Z20.822 Contact with and (suspected) exposure to COVID-19
CPT/HCPCS: 0241U-QW; 87651; 99284-25; J1100